=== PATIENT | female | born 1985 | race African-American/Black ===

== ENCOUNTER 2017-09-05 11:29 | Emergency (ER) | payer OTHER ==
[~2017-09-05] VITALS: Ht 160 cm; Wt 52.0 kg
[2017-09-05 11:42] VITALS: BP 121/58; PULSE 74; RESP 18; TEMP 97.4; O2SAT 99
[2017-09-05] MEDS ORDERED: SODIUM CHLOR 0.9% 1000 ML INJ 1,000 ML IV SCH (12:28)
[2017-09-05] MEDS ORDERED: SODIUM CHLORIDE 0.9% FLUSH 10 ML FLUSH IV FLUSH PRN (12:30)
[2017-09-05] MEDS ORDERED: ONDANSETRON ODT 4 MG TAB PO ONE (12:30)
[2017-09-05 12:40] VITALS: RESP 16; O2SAT 98
[2017-09-05 13:04] LABS: AUTOMATED NEUTROPHIL # 10.2 TH/MM3 (1.8-7.7); BASOPHIL % 0.3 % (0.0-2.0); HEMATOCRIT 39.3 % (35.0-46.0); HEMOGLOBIN 13.2 GM/DL (11.6-15.3); LYMPH % 5.9 % (9.0-44.0); LYMPHOCYTE # 0.7 TH/MM3 (1.0-4.8); MEAN CELL VOLUME 94.8 FL (80.0-100.0); MEAN CORPUSCULAR HEMOGLOBIN 31.9 PG (27.0-34.0); MEAN CORPUSCULAR HGB CONC 33.6 % (32.0-36.0); MEAN PLATELET VOLUME 9.7 FL (7.0-11.0); MONO % 4.5 % (0.0-8.0); MONOCYTE # 0.5 TH/MM3 (0-0.9); NEUT % 89.3 % (16.0-70.0); PLATELET COUNT 201 TH/MM3 (150-450); RED BLOOD COUNT 4.15 MIL/MM3 (4.00-5.30); RED CELL DISTRIBUTION WIDTH 12.9 % (11.6-17.2); WHITE BLOOD COUNT 11.4 TH/MM3 (4.0-11.0)
[2017-09-05] MEDS ORDERED: PROCHLORPERAZINE INJ 10 MG/2 ML VIAL IV PUSH ONE (13:45)
[2017-09-05] MEDS ORDERED: KETOROLAC TROMETHAMINE 30 MG/ML (IVP) VIAL IV PUSH ONE (13:45)
[2017-09-05 14:08] LABS: ALBUMIN 4.2 GM/DL (3.4-5.0); AST (GOT) 20 U/L (15-37); BICARBONATE 19.9 MEQ/L (21.0-32.0); BLOOD UREA NITROGEN 15 MG/DL (7-18); CALCIUM 9.2 MG/DL (8.5-10.1); CHLORIDE 109 MEQ/L (98-107); CREATININE 0.96 MG/DL (0.50-1.00); GLOMERULAR FILTRATION RATE 81 ML/MIN (>89); GLUCOSE,RANDOM 147 MG/DL (74-106); SODIUM (NA) 142 MEQ/L (136-145)
[2017-09-05 14:09] LABS: BILIRUBIN, URINE NEG (NEG); BLOOD, URINE NEG (NEG); GLUCOSE,URINE 70 mg/dL (NEG); KETONE, URINE 40 mg/dL (NEG); MUCUS URINE FEW /lpf (OCC); NITRITE,URINE NEG (NEG); SQUAMOUS EPITHELIAL CELL URINE 3 /hpf (0-5); URINE COLOR YELLOW (YELLW/STRAW); URINE LEUKOCYTE ESTERASE SMALL (NEG)
[2017-09-05 14:09] LABS: ALT (GPT) 31 U/L (10-53)
[2017-09-05 14:13] LABS: ALKALINE PHOSPHATASE 64 U/L (45-117); TOTAL BILIRUBIN ADULT 0.3 MG/DL (0.2-1.0); TOTAL PROTEIN 7.8 GM/DL (6.4-8.2)
--- NOTE | 2017-09-05 14:28 | PD ---
HPI Chief Complaint: GI Complaint Time Seen by Provider: 12:28 Travel History International Travel<30 days: No Contact w/Intl Traveler<30days: No Traveled to known affect area: No History of Present Illness HPI 32-year-old -[place] female presents emergency department with sudden onset nausea and vomiting and generalized abdominal pain. Patient states she started her menstrual cycle which seems to cause this every month. Patient states this time is worse than the last 2 months. She has no primary or [employer]. She states no blood in the emesis. She denies fever, chills, urinary symptoms, or vaginal discharge. She has no diarrhea. Pain is 10 out of 10. It is generalized in nature. She has no known drug allergies. PFSH Past Medical History Hx Anticoagulant Therapy: No Depression: Yes Heart Rhythm Problems: No Cardiac Catheterization: No Cardiovascular Problems: No High Cholesterol: No Chemotherapy: No Congestive Heart Failure: No Cerebrovascular Accident: No Diabetes: No Diminished Hearing: No Hypertension: No Respiratory: No Myocardial Infarction: No ?: Unknown Past Surgical History Coronary Artery Bypass Graft: No Hysterectomy: No Social History Alcohol Use: Yes (oc) Tobacco Use: No Substance Use: Yes (NO MARIJUANA FOR A WEEK) Allergies-Medications (Allergen,Severity, Reaction): Coded Allergies: No Known Allergies (Verified , 11/16/14) Reported Meds & Prescriptions Reported Meds & Active Scripts Active Phenergan (Promethazine HCl) 25 Mg Tablet 25 Mg PO Q6H PRN Ibuprofen 800 Mg Tab 800 Mg PO Q8H PRN Review of Systems Except as stated in HPI: all other systems reviewed are Neg General / Constitutional: No: Fever Eyes: No: Visual changes HENT: No: Headaches Cardiovascular: No: Chest Pain or Discomfort Respiratory: No: Shortness of Breath Gastrointestinal: No: Abdominal Pain Genitourinary: Positive: Dysmenorrhea, Vaginal Bleeding, No: Urgency, Frequency , Dysuria, Discharge, Menorrhagia, Metorrhagia Musculoskeletal: No: Pain Skin: No Rash Neurologic: No: Weakness Psychiatric: No: Depression Endocrine: No: Polydipsia Hematologic/Lymphatic: No: Easy Bruising Physical Exam Narrative GENERAL: Patient appears in moderate distress. SKIN: Warm and dry. Normal color. Normal turgor. No diaphoresis HEAD: Atraumatic. Normocephalic. EYES: Pupils equal and round. No scleral icterus. No injection or drainage. ENT: No nasal bleeding or discharge. Mucous membranes pink and moist. Pharynx is clear. Airways patent. NECK: Trachea midline. Supple and nontender CARDIOVASCULAR: Regular rate and rhythm. RESPIRATORY: No accessory muscle use. Clear to auscultation. Breath sounds equal bilaterally. GASTROINTESTINAL: Abdomen soft, moderate diffuse tenderness throughout, nondistended. No CVA tenderness. hepatic and splenic margins not palpable. MUSCULOSKELETAL: Extremities without clubbing, cyanosis, or edema. No obvious deformities. NEUROLOGICAL: Awake and alert. No obvious cranial nerve deficits. Motor grossly within normal limits. Five out of 5 muscle strength in the arms and legs. Normal speech. PSYCHIATRIC: Appropriate mood and affect; insight and judgment normal. Data Data Last Documented VS Vital Signs Date Time Temp Pulse Resp B/P (MAP) Pulse Ox O2 Delivery O2 Flow Rate FiO2 09/05/17 12:40 16 98 Room Air 09/05/17 11:42 97.4 74 121/58 (79) Orders Orders Beta Hcg (Quant/Titer) (09/05/17 12:28) Complete Blood Count With Diff (09/05/17 12:28) Comprehensive Metabolic Panel (09/05/17 12:28) Urinalysis - C+S If Indicated (09/05/17 12:28) Iv Access Insert/Monitor (09/05/17 12:28) Ecg Monitoring (09/05/17 12:28) Oximetry (09/05/17 12:28) Sodium Chlor 0.9% 1000 Ml Inj (Ns 1000 M (09/05/17 12:28) Sodium Chloride 0.9% Flush (Ns Flush) (09/05/17 12:30) Ed Urine Pregnancytest Poc (09/05/17 12:28) Ondansetron Odt (Zofran Odt) (09/05/17 12:30) Lipase (09/05/17 12:37) Ketorolac Inj (Toradol Inj) (09/05/17 13:45) Prochlorperazine Inj (Compazine Inj) (09/05/17 13:45) Labs Laboratory Tests Test 09/05/17 12:40 09/05/17 13:30 White Blood Count 11.4 TH/MM3 Red Blood Count 4.15 MIL/MM3 Hemoglobin 13.2 GM/DL Hematocrit 39.3 % Mean Corpuscular Volume 94.8 FL Mean Corpuscular Hemoglobin 31.9 PG Mean Corpuscular Hemoglobin Concent 33.6 % Red Cell Distribution Width 12.9 % Platelet Count 201 TH/MM3 Mean Platelet Volume 9.7 FL Neutrophils (%) (Auto) 89.3 % Lymphocytes (%) (Auto) 5.9 % Monocytes (%) (Auto) 4.5 % Eosinophils (%) (Auto) 0.0 % Basophils (%) (Auto) 0.3 % Neutrophils # (Auto) 10.2 TH/MM3 Lymphocytes # (Auto) 0.7 TH/MM3 Monocytes # (Auto) 0.5 TH/MM3 Eosinophils # (Auto) 0.0 TH/MM3 Basophils # (Auto) 0.0 TH/MM3 CBC Comment DIFF FINAL Differential Comment Blood Urea Nitrogen 15 MG/DL Creatinine 0.96 MG/DL Random Glucose 147 MG/DL Total Protein 7.8 GM/DL Albumin 4.2 GM/DL Calcium Level 9.2 MG/DL Alkaline Phosphatase 64 U/L Aspartate Amino Transf (AST/SGOT) 20 U/L Alanine Aminotransferase (ALT/SGPT) 31 U/L Total Bilirubin 0.3 MG/DL Sodium Level 142 MEQ/L Potassium Level 3.5 MEQ/L Chloride Level 109 MEQ/L Carbon Dioxide Level 19.9 MEQ/L Anion Gap 13 MEQ/L Estimat Glomerular Filtration Rate 81 ML/MIN Lipase 38 U/L Human Chorionic Gonadotropin, Quant LESS THAN 1 MIU/ML Urine Color YELLOW Urine Turbidity CLEAR Urine pH 6.0 Urine Specific [place] 1.030 Urine Protein TRACE mg/dL Urine Glucose (UA) 70 mg/dL Urine Ketones 40 mg/dL Urine Occult Blood NEG Urine Nitrite NEG Urine Bilirubin NEG Urine Urobilinogen LESS THAN 2.0 MG/DL Urine Leukocyte Esterase SMALL Urine RBC 2 /hpf Urine WBC 2 /hpf Urine Squamous Epithelial Cells 3 /hpf Urine Mucus FEW /lpf Microscopic Urinalysis Comment CULT NOT INDICATED MDM Medical Decision Making Medical Screen Exam Complete: Yes Emergency Medical Condition: Yes Medical Record Reviewed: Yes Differential Diagnosis Nausea vomiting. Abdominal pain. Dysmenorrhea. Narrative Course Patient is medically stable at time of exam. Labs ordered including CBC, CMP, urinalysis, urine , and lipase. IV access is obtained the patient is given 1000 mL of normal saline bolus. Patient is given 4 mg Zofran p.o. Urine is negative. Patient is given 30 mg Toradol IV as well as 10 mg Compazine IV CBC is remarkable for leukocytosis of 14.3. CMP is unremarkable. Lipase is normal at 38 serum hCG is less than 1. Urinalysis shows trace of glucose, ketones 40, but no signs of infection After medications the patient feels improved Patient be discharged home with ibuprofen 800 mg 3 times daily with food #30. Patient also given Phenergan 25 mg p.o. every 6 hours as needed nausea or vomiting Recommend [facility] to her recurrent dysmenorrhea Patient can return if worsening symptoms develop. Diagnosis Primary Impression: Dysmenorrhea Additional Impressions: Nausea and vomiting Qualified Codes: R11.2 - Nausea with vomiting, unspecified Abdominal pain Qualified Codes: R10.84 - Generalized abdominal pain Referrals: [facility] call for appointment Patient Instructions: Acute Nausea and Vomiting (ED), Dysmenorrhea (ED), General Instructions Additional Instructions: Urine is negative. Patient is given 30 mg Toradol IV as well as 10 mg Compazine IV CBC is remarkable for leukocytosis of 14.3. CMP is unremarkable. Lipase is normal at 38 serum hCG is less than 1. Urinalysis shows trace of glucose, ketones 40, but no signs of infection After medications the patient feels improved Patient be discharged home with ibuprofen 800 mg 3 times daily with food #30. Patient also given Phenergan 25 mg p.o. every 6 hours as needed nausea or vomiting Recommend follow-[facility] with the [facility] due to her recurrent dysmenorrhea Patient can return if worsening symptoms develop. Med/Other Pt SpecificInfo: Prescription(s) given Scripts Promethazine (Phenergan) 25 Mg Tablet 25 MG PO Q6H Y for NAUSEA OR VOMITING, #30 TAB 0 Refills Prov: Otis Gold MD 09/05/17 Ibuprofen (Ibuprofen) 800 Mg Tab 800 MG PO Q8H Y for Pain/Inflammation, #30 TAB 0 Refills Prov: Otis Gold MD 09/05/17 Disposition: 01 DISCHARGE HOME Condition: Stable Kumar Lennon Sep 05, 2017 14:28
[2017-09-05] MEDS ORDERED: IBUP1TAB7 PO (14:31)
[2017-09-05] MEDS ORDERED: PROM25TA10 PO (14:31)
[2017-09-05 14:49] VITALS: RESP 16
== END 2017-09-05 14:48 | disposition home or self-care (01) ==
LOC: NEPD 11:29
DX: N94.6 Dysmenorrhea, unspecified (principal); R11.2 Nausea with vomiting, unspecified; R10.84 Generalized abdominal pain
CPT/HCPCS: 80053; 81001; 83690; 84702; 84703; 85025; 96361; 96374; 96375; 99284; J0780; J1885; J7030